=== PATIENT | female | born 1960 | race Caucasian/White ===

== ENCOUNTER 2016-09-23 14:09 | Emergency (ER) | payer OTHER ==
[2016-09-23] MEDS ORDERED: Sodium Chloride 0.9% 1,000 ML IV ONE ×2 (14:52→16:58)
[2016-09-23] MEDS ORDERED: Ondansetron 4 MG/2 ML SDV IVPUSH ONE (14:52)
[2016-09-23 15:32] LABS: CHLORIDE,CL 101 mmol/L (98-110); SODIUM,NA 137 mmol/L (136-146)
--- NOTE | 2016-09-23 16:10 | EDM.PDOC ---
ED HPI GENERAL MEDICAL PROBLEM - General Chief Complaint: Abdominal Pain Stated Complaint: NAUSEA AND VOMITING Time Seen by Provider: 09/23/16 14:45 Source of Information: Reports: Patient History Limitations: Reports: No Limitations - History of Present Illness INITIAL COMMENTS - FREE TEXT/NARRATIVE: History of present illness: [55-year-old female comes in complaining of abdominal pain with diarrhea. Patient indicates she has had several days of diarrhea progressively worsening since she went to a [place] restaurant and ate some chicken and shrimp.] Review of systems: As per history of present illness and below otherwise all systems reviewed and negative. Past medical history: As per history of present illness and as reviewed below otherwise noncontributory. Surgical history: As per history of present illness and as reviewed below otherwise noncontributory. Social history: No reported history of drug or alcohol abuse. Family history: As per history of present illness and as reviewed below otherwise noncontributory. Physical exam: HEENT: Atraumatic, normocephalic, pupils reactive, negative for conjunctival pallor or scleral icterus, mucous membranes moist, throat clear, neck supple, nontender, trachea midline. Lungs: Clear to auscultation, breath sounds equal bilaterally, chest nontender. Heart: S1S2, regular, negative for clicks, rubs, or JVD. Abdomen: Soft, nondistended, nontender. Negative for masses or hepatosplenomegaly. Negative for costovertebral tenderness. Pelvis: Stable nontender. Genitourinary: Deferred. Rectal: Deferred. Extremities: Atraumatic, negative for cords or calf pain. Neurovascular unremarkable. Neuro: Awake, alert, oriented. Cranial nerves II through XII unremarkable. Cerebellum unremarkable. Motor and sensory unremarkable throughout. Exam nonfocal. Diagnostics: [CBC, CMP, CT of the abdomen with contrast] Therapeutics: [IV fluid, Compazine, Zofran] Impression: [Moderate colitis without leukocytosis] Plan: [Xifaxan, Zofran] Definitive disposition and diagnosis as appropriate pending reevaluation and review of above. Abdomen Pain Score (Numeric/FACES): 8 - Related Data Allergies Allergy/AdvReac Type Severity Reaction Status Date / Time No Known Allergies Allergy Verified 09/23/16 14:23 Home Meds: Home Meds Diphenoxylate HCl/Atropine [Diphenoxylate-Atrop 2.5-0.025] 1 tab PO Q8HR PRN [History] Ondansetron [Zofran ODT] 4 mg PO Q4H #24 tab.dis 09/23/16 [Rx] Rifaximin [Xifaxan] 550 mg PO TID #21 tablet 09/23/16 [Rx] Past Medical History Gastrointestinal History: Reports: Chronic Constipation, Hemorrhoids - Infectious Disease History Infectious Disease History: Reports: Chicken Pox, Other (See Below) Other Infectious Disease History: Purpura - Past Surgical History GI Surgical History: Reports: Colonoscopy Social & Family History - Family History Family Medical History: Noncontributory - Tobacco Use Smoking Status *Q: Former Smoker Used Tobacco, but Quit: Yes Month Tobacco Last Used: 05/2015 - Caffeine Use Caffeine Use: Reports: Coffee - Recreational Drug Use Recreational Drug Use: No ED ROS GENERAL - Review of Systems Review Of Systems: See Below (History of present illness) ED EXAM, GI/ABD - Physical Exam Exam: See Below (The history of present illness) Course - Vital Signs Last Recorded V/S: Last Vital Signs Temp 36.7 C 09/23/16 14:24 Pulse 108 H 09/23/16 14:24 Resp 16 09/23/16 14:24 BP 115/62 09/23/16 14:24 Pulse Ox 96 09/23/16 14:24 - Orders/Labs/Meds Orders: Active Orders 24 hr Category Date Time Status Abdomen Pelvis w Cont [CT] Stat Exams 09/23/16 15:52 Taken CULTURE STOOL + CAMPY+SHIGATOX [RM] Stat Lab 09/23/16 15:25 Ordered Labs: Laboratory Tests 09/23/16 09/23/16 Range/Units 15:00 15:00 WBC 11.25 H (4.0-11.0) K/uL RBC 4.26 L (4.30-5.90) M/uL Hgb 11.9 L (12.0-16.0) g/dL Hct 36.5 (36.0-46.0) % MCV 85.7 (80.0-98.0) fL MCH 27.9 (27.0-32.0) pg MCHC 32.6 (31.0-37.0) g/dL RDW Std Deviation 41.3 (28.0-62.0) fl RDW Coeff of Lee 13 (11.0-15.0) % Plt Count 363 (150-400) K/uL MPV 9.90 (7.40-12.00) fL Add Manual Diff YES Neutrophils % (Manual) 25 L (48.0-80.0) % Band Neutrophils % 47 % Lymphocytes % (Manual) 15 L (16.0-40.0) % Monocytes % (Manual) 12 (0.0-15.0) % Eosinophils % (Manual) 1 (0.0-7.0) % Nucleated RBC % 0.0 /100WBC Absolute Seg Neuts 2.8 Band Neutrophils # 5.3 Lymphocytes # (Manual) 1.7 Monocytes # (Manual) 1.4 Eosinophils # (Manual) 0.1 Nucleated RBCs # 0 K/uL Sodium 137 (136-146) mmol/L Potassium 3.6 (3.5-5.1) mmol/L Chloride 101 (98-110) mmol/L Carbon Dioxide 24 (21-31) mmol/L BUN 9 (6.0-23.0) mg/dL Creatinine 0.7 (0.6-1.5) mg/dL Est Cr Clr Drug Dosing 79.34 mL/min Estimated GFR (MDRD) > 60.0 ml/min Glucose 98 (60-110) mg/dL Calcium 8.3 L (8.8-10.8) mg/dL Total Bilirubin 0.5 (0.1-1.5) mg/dL AST 10 (5-40) IU/L ALT 9 (8-54) IU/L Alkaline Phosphatase 63 (40-150) Total Protein 6.4 (6.0-8.0) g/dL Albumin 3.1 L (3.5-5.0) g/dL Globulin 3.3 (2.0-3.5) g/dL Albumin/Globulin Ratio 0.9 L (1.3-2.8) Meds: Medications Discontinued Medications Generic Name Dose Route Start Last Admin Trade Name Freq PRN Reason Stop Dose Admin Sodium Chloride 1,000 mls @ 999 mls/hr 09/23/16 14:52 09/23/16 15:17 Normal Saline IV 09/23/16 15:52 999 mls/hr STAT ONE Administration Sodium Chloride 1,000 mls @ 999 mls/hr 09/23/16 16:58 09/23/16 17:29 Normal Saline IV 09/23/16 17:58 999 mls/hr STAT ONE Administration Iopamidol 100 ml 09/23/16 16:36 09/23/16 17:11 Isovue-370 (76%) IVPUSH 09/23/16 16:37 100 ml ONETIME STA Administration Ondansetron HCl 4 mg 09/23/16 14:52 09/23/16 15:17 Zofran IVPUSH 09/23/16 14:53 4 mg ONETIME ONE Administration Prochlorperazine Edisylate 10 mg 09/23/16 16:58 09/23/16 17:28 Compazine IVPUSH 09/23/16 16:59 10 mg ONETIME ONE Administration Departure - Departure Time of Disposition: 18:34 Disposition: Home, Self-Care 01 Condition: Good Clinical Impression: Colitis - Discharge Information Prescriptions: Ondansetron [Zofran ODT] 4 mg PO Q4H #24 tab.dis Rifaximin [Xifaxan] 550 mg PO TID #21 tablet Forms: ED Department Discharge Additional Instructions: The following information is given to patients seen in the emergency department who are being discharged to home. This information is to outline your options for follow-up care. We provide all patients seen in our emergency department with a follow-up referral. The need for follow-up, as well as the timing and circumstances, are variable depending upon the specifics of your emergency department visit. If you don't have a primary care physician on staff, we will provide you with a referral. We always advise you to contact your personal physician following an emergency department visit to inform them of the circumstance of the visit and for follow-up with them and/or the need for any referrals to a consulting specialist. The emergency department will also refer you to a specialist when appropriate. This referral assures that you have the opportunity for follow-up care with a specialist. All of these measure are taken in an effort to provide you with optimal care, which includes your follow-up. Under all circumstances we always encourage you to contact your private physician who remains a resource for coordinating your care. When calling for follow-up care, please make the office aware that this follow-up is from your recent emergency room visit. If for any reason you are refused follow-up, please contact the [facility] Emergency Department at and asked to speak to the emergency department charge nurse. Technique medication as directed Follow-up with your PCP in 1-2 days Return to ED as needed as discussed - My Orders Last 24 Hours: My Active Orders 09/23/16 15:25 CULTURE STOOL + CAMPY+SHIGATOX [RM] Stat 09/23/16 15:52 Abdomen Pelvis w Cont [CT] Stat - Assessment/Plan Last 24 Hours: My Active Orders 09/23/16 15:25 CULTURE STOOL + CAMPY+SHIGATOX [RM] Stat 09/23/16 15:52 Abdomen Pelvis w Cont [CT] Stat
[2016-09-23] MEDS ORDERED: Iopamidol 755 Mg/ML 100 ML Bottle IVPUSH STA (16:36)
[2016-09-23] MEDS ORDERED: Prochlorperazine 10 MG/2 ML SDV IVPUSH ONE (16:58)
[2016-09-23 19:08] VITALS: BP 107/62
--- NOTE | 2016-09-24 16:53 | CT ---
EXAM DATE: 09/23/16 PATIENT'S AGE: 55 Patient: MAYCOL VERGARA Facility: [place], [place] Site . Site : 1960 Study: CT Abdomen/Pelvis [id number]/15/2017 5:32:40 PM Ordering Physician: Doctor Monterroso Final Report: INDICATION: sick X 3 weeks with diarrhea, patients seen in clinic on Tuesday put on medication and has also been vomiting since. states pain all over abdomen INDICATION: Abdominal pain and diarrhea. CT ABDOMEN AND PELVIS WITH CONTRAST TECHNIQUE: Multidetector CT imaging was performed through the abdomen and pelvis following intravenous contrast administration using 100 mL Isovue 370. Coronal and sagittal reconstructions were generated. COMPARISON: None. FINDINGS: Lower chest: Minimal bibasilar lung atelectasis. Liver: Unremarkable aside from probable tiny cyst in the left hepatic lobe on image 15 of series 201. Gallbladder and bile ducts: Faint dependent density within the gallbladder, possibly representing sludge or stones; if desired, this could be further evaluated with ultrasound. No evidence of cholecystitis. No biliary dilation identified. Pancreas: Unremarkable. Spleen: Normal. Adrenals: No nodules or masses. Kidneys, ureters, and urinary bladder: No renal masses or hydronephrosis. No bladder mass or definite wall thickening. Gastrointestinal tract: Normal caliber small bowel without wall thickening or obstruction. The appendix is normal. Diffuse abnormal wall thickening of the colon, most severe in the distal ascending colon and hepatic flexure, with mild pericolonic stranding, consistent with colitis. Vascular structures: Normal caliber abdominal aorta with mild atherosclerotic calcification. Peritoneum: Trace amount of free fluid in the lower pelvis. No free air or evidence of intra-abdominal abscess. Lymph nodes: No pathologically enlarged nodes identified. Reproductive organs: No pelvic masses. Bones: Normal for age. IMPRESSION: Moderate to severe diffuse colitis, most marked in the right colon. MAMADOU DUEÑAS MD [employer] Dictated by Kole Dueñas MD @ 09/23/2016 6:11:48 PM Prelim Report By Dr. Kole Dueñas @ 09/23/2016 6:14:10 PM ADDENDUM Additional finding not noted above is colonic diverticulosis. Dictated by: , @ 09/23/2016 18:29:07 (Electronic Signature) Report Signed by Proxy. YING
== END 2016-09-23 19:06 | disposition home or self-care (01) ==
LOC: MW.ED 14:09
DX: K52.9 Noninfective gastroenteritis and colitis, unspecified (principal); Z87.891 Personal history of nicotine dependence
CPT/HCPCS: 36415; 74177; 80053; 85025; 96361; 96374; 96375; 99284; J0780; J2405; J7040; Q9967

== ENCOUNTER 2017-08-25 17:19 | Emergency (ER) | payer OTHER ==
[2017-08-25] MEDS ORDERED: Sodium Chloride 0.9% 1,000 ML IV ONE (17:53)
[2017-08-25] MEDS ORDERED: Promethazine 25 MG/ML SDV IM ONE (17:53)
--- NOTE | 2017-08-25 17:58 | EDM.PDOC ---
ED HPI GENERAL MEDICAL PROBLEM - General Chief Complaint: Gastrointestinal Problem Stated Complaint: FLARE UP/MEDICATION CAUSING VOMITING Time Seen by Provider: 08/25/17 17:39 Source of Information: Reports: Patient History Limitations: Reports: No Limitations - History of Present Illness INITIAL COMMENTS - FREE TEXT/NARRATIVE: HISTORY AND PHYSICAL: History of present illness: Patient is a 56-year-old female who presents to the emergency room today with complaints of nausea, vomiting and abdominal pain. 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 She states she has been working closely with her provider to find a medication that helps alleviate her symptoms. Recently she was switched to Lialda last week, but does not feel any improvement. States she has called her mushroom growing supervisor and left digits with them but has not heard back from her provider. She is here today with concerns that she is dehydrated due to her vomiting. Review of systems: As per history of present illness and below otherwise all systems reviewed and negative. Past medical history: As per history of present illness and as reviewed below otherwise noncontributory. Surgical history: As per history of present illness and as reviewed below otherwise noncontributory. Social history: No reported history of drug or alcohol abuse. Family history: As per history of present illness and as reviewed below otherwise noncontributory. Physical exam: General: Well-developed and well-nourished 56-year-old female. Alert and oriented. Nontoxic appearing and in no acute distress. HEENT: Atraumatic, normocephalic, pupils equal and reactive bilaterally, negative for conjunctival pallor or scleral icterus, mucous membranes moist, throat clear, neck supple, nontender, trachea midline. No drooling or trismus noted. No meningeal signs Lungs: Clear to auscultation, breath sounds equal bilaterally, chest nontender. Heart: S1S2, regular rate and rhythm without overt murmur Abdomen: Soft, nondistended, diffuse tenderness in all 4 quadrants. Negative for masses or hepatosplenomegaly. Negative for costovertebral tenderness. Pelvis: Stable nontender. Genitourinary: Deferred. Rectal: Deferred. Skin: Intact, warm, dry. No lesions or rashes noted. Extremities: Atraumatic, negative for cords or calf pain. Neurovascular unremarkable. Neuro: Awake, alert, oriented. Cranial nerves II through XII unremarkable. Cerebellum unremarkable. Motor and sensory unremarkable throughout. Exam nonfocal. Notes: Discussed labs and CT of the abdomen and pelvis for evaluation. She is agreeable to performing lab work but declines a CT of the abdomen/pelvis. She states that she has no new symptoms and recently had a CT which she did not want repeated. With her concern of dehydration she is willing to receive IV fluids. 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 She is requesting steroids, stating that "prednisone usually helps". WBC 16.22 (H) with a Potassium of 3.2 (L). I did encourage the patient to allow us to do a CT of her abdomen; as I am concerned of possible infection with her white count being elevated and low grade temperature. Regardless of my education and expressed concern; she continues to decline, stating "No, that's not necessary". Aware of risks of not having full evaluation. Patient is unable to void, she declines giving a urine sample. She states she doesn't have "a UTI". She reports that her primary care provider usually gives her prednisone for of days. Requesting a prescription until she is able to get to [place] for reevaluation by her mushroom growing supervisor. Diagnostics: CBC CMP Therapeutics: IV fluid, Phenergan IM, Solu-Medrol, potassium Impression: History of Ulcerative Collitis Dehydration Hypokalemia Plan: 1. Multiple tests were not completed through the emergency room, which were recommended. If you do have increased abdominal pain, fever or any new symptoms/ worsening symptoms please return to the emergency room. 2. May start the Prednisone Taper tomorrow (had a dose here in the ED). 3. Please increase foods that are high in potassium such as spinach, bananas, etc.. 4. Follow up with your Informatics Developer or Primary Care Provider in [place] in the next 1-2 days. Return to the ED as needed and as discussed. Definitive disposition and diagnosis as appropriate pending reevaluation and review of above. Duration: Week(s):, Chronic, Getting Worse Location: Reports: Abdomen Abdominal Pain Score (Numeric/FACES): 9 - Related Data Allergies Allergy/AdvReac Type Severity Reaction Status Date / Time No Known Allergies Allergy Verified 08/25/17 17:34 Home Meds: Home Meds Mesalamine [Lialda] 1.2 gm PO QID MDD 4 tabs qid 08/25/17 [History] Past Medical History Gastrointestinal History: Reports: Chronic Constipation, Hemorrhoids, Other ( See Below) Other Gastrointestinal History: UC - Infectious Disease History Infectious Disease History: Reports: Chicken Pox Other Infectious Disease History: Purpura - Past Surgical History GI Surgical History: Reports: Colonoscopy Female Surgical History: Reports: Tubal Ligation Social & Family History - Family History Family Medical History: Noncontributory - Tobacco Use Smoking Status *Q: Former Smoker Used Tobacco, but Quit: Yes Month/Year Tobacco Last Used: 05/2015 - Caffeine Use Caffeine Use: Reports: Coffee - Recreational Drug Use Recreational Drug Use: No ED ROS GENERAL - Review of Systems Review Of Systems: ROS reveals no pertinent complaints other than HPI. ED EXAM, GI/ABD - Physical Exam Exam: See Below (See dictation) Course - Vital Signs Last Recorded V/S: Last Vital Signs Temp 99.2 F 08/25/17 17:39 Pulse 90 08/25/17 17:39 Resp 18 08/25/17 17:39 BP 116/70 08/25/17 17:39 Pulse Ox 100 08/25/17 17:39 - Orders/Labs/Meds Orders: Active Orders 24 hr Category Date Time Status UA W/MICROSCOPIC [URIN] Stat Lab 08/25/17 17:53 Ordered Labs: Laboratory Tests 08/25/17 08/25/17 Range/Units 18:06 18:06 WBC 16.22 H (4.0-11.0) K/uL RBC 3.81 L (4.30-5.90) M/uL Hgb 11.2 L (12.0-16.0) g/dL Hct 33.2 L (36.0-46.0) % MCV 87.1 (80.0-98.0) fL MCH 29.4 (27.0-32.0) pg MCHC 33.7 (31.0-37.0) g/dL RDW Std Deviation 42.0 (28.0-62.0) fl RDW Coeff of Lee 13 (11.0-15.0) % Plt Count 397 (150-400) K/uL MPV 9.90 (7.40-12.00) fL Neut % (Auto) 83.2 H (48.0-80.0) % Lymph % (Auto) 4.6 L (16.0-40.0) % Childress % (Auto) 10.4 (0.0-15.0) % Eos % (Auto) 1.7 (0.0-7.0) % Baso % (Auto) 0.1 (0.0-1.5) % Neut # (Auto) 13.5 H (1.4-5.7) K/uL Lymph # (Auto) 0.8 (0.6-2.4) K/uL Childress # (Auto) 1.7 H (0.0-0.8) K/uL Eos # (Auto) 0.3 (0.0-0.7) K/uL Baso # (Auto) 0.0 (0.0-0.1) K/uL Nucleated RBC % 0.0 /100WBC Nucleated RBCs # 0 K/uL Sodium 134 L (136-145) mmol/L Potassium 3.2 L (3.5-5.1) mmol/L Chloride 99 (98-107) mmol/L Carbon Dioxide 26.8 (21.0-32.0) mmol/L BUN 7 (7.0-18.0) mg/dL Creatinine 0.7 (0.6-1.0) mg/dL Est Cr Clr Drug Dosing 78.41 mL/min Estimated GFR (MDRD) > 60.0 ml/min Glucose 112 H (74-106) mg/dL Calcium 8.7 (8.5-10.1) mg/dL Total Bilirubin 0.6 (0.2-1.0) mg/dL AST 14 L (15-37) IU/L ALT 15 (14-63) IU/L Alkaline Phosphatase 67 (46-116) U/L Total Protein 6.8 (6.4-8.2) g/dL Albumin 2.9 L (3.4-5.0) g/dL Globulin 3.9 H (2.0-3.5) g/dL Albumin/Globulin Ratio 0.7 L (1.3-2.8) Amylase 15 L (25-115) U/L Lipase 65 L (73-393) U/L Meds: Medications Discontinued Medications Generic Name Dose Route Start Last Admin Trade Name Freq PRN Reason Stop Dose Admin Sodium Chloride 1,000 mls @ 999 mls/hr 08/25/17 17:53 08/25/17 18:08 Normal Saline IV 08/25/17 18:53 999 mls/hr STAT ONE Administration Methylprednisolone Sodium Succinate 125 mg 08/25/17 18:50 Solu-Medrol IVPUSH 08/25/17 18:51 ONETIME ONE Potassium Chloride 40 meq 08/25/17 18:50 Klor-Con M20 PO 08/25/17 18:51 ONETIME ONE Promethazine HCl 25 mg 08/25/17 17:53 08/25/17 18:10 Phenergan IM 08/25/17 17:54 25 mg ONETIME ONE Administration Departure - Departure Time of Disposition: 19:22 Disposition: Home, Self-Care 01 Clinical Impression: Hypokalemia, Dehydration, History of ulcerative colitis - Discharge Information Referrals: PCP,None [Primary Care Provider] - Forms: ED Department Discharge Additional Instructions: The following information is given to patients seen in the emergency department who are being discharged to home. This information is to outline your options for follow-up care. We provide all patients seen in our emergency department with a follow-up referral. The need for follow-up, as well as the timing and circumstances, are variable depending upon the specifics of your emergency department visit. If you don't have a primary care physician on staff, we will provide you with a referral. We always advise you to contact your personal physician following an emergency department visit to inform them of the circumstance of the visit and for follow-up with them and/or the need for any referrals to a consulting specialist. The emergency department will also refer you to a specialist when appropriate. This referral assures that you have the opportunity for follow-up care with a specialist. All of these measure are taken in an effort to provide you with optimal care, which includes your follow-up. Under all circumstances we always encourage you to contact your private physician who remains a resource for coordinating your care. When calling for follow-up care, please make the office aware that this follow-up is from your recent emergency room visit. If for any reason you are refused follow-up, please contact the [facility] Emergency Department at and asked to speak to the emergency department charge nurse. [facility] [address] [place] [id number] 1. Multiple tests were not completed through the emergency room, which were recommended. If you do have increased abdominal pain, fever or any new symptoms/ worsening symptoms please return to the emergency room. 2. May start the Prednisone tomorrow (had a dose of steroid here in the ED). 3. Please increase foods that are high in potassium such as spinach, bananas, etc.. 4. Follow up with your Informatics Developer or Primary Care Provider in [place] in the next 1-2 days. Return to the ED as needed and as discussed. - My Orders Last 24 Hours: My Active Orders 08/25/17 17:53 UA W/MICROSCOPIC [URIN] Stat - Assessment/Plan Last 24 Hours: My Active Orders 08/25/17 17:53 UA W/MICROSCOPIC [URIN] Stat
[2017-08-25 18:33] LABS: CHLORIDE,CL 99 mmol/L (98-107); SODIUM,NA 134 mmol/L (136-145)
[2017-08-25] MEDS ORDERED: methylPREDNISolone Sodium Succinate 125 MG/2 ML SDV IVPUSH ONE (18:50)
[2017-08-25] MEDS ORDERED: Potassium Chloride 20 MEQ Tab.ER PO ONE (18:50)
[2017-08-25 19:48] VITALS: BP 114/70
== END 2017-08-25 19:49 | disposition home or self-care (01) ==
LOC: MW.ED 17:19
DX: E86.0 Dehydration (principal); E87.6 Hypokalemia; Z87.891 Personal history of nicotine dependence
CPT/HCPCS: 80053; 82150; 83690; 85025; 96361; 96372; 96374; 99284; A9270; J2550; J2930; J7040

== ENCOUNTER 2023-11-06 09:16 | Inpatient (IN) | payer BC, OTHER ==
[2023-11-06] MEDS: Ketorolac 30 MG/ML SDV IVPUSH ONE (09:42)
[2023-11-06] MEDS: Ondansetron 4 MG/2 ML SDV IVPUSH ONE (09:42)
[2023-11-06 09:52] LABS: BASOPHILS ABSOLUTE AUTO 0.03 K/uL (0.00-0.20); BASOPHILS PERCENT AUTO 0.2 % (0.0-1.0); HEMOGLOBIN 12.3 g/dL (12.0-16.0); IMMATURE GRAN ABSOLUTE AUTO 0.03 K/uL (0.00-0.05); IMMATURE GRAN PERCENT AUTO 0.2 % (0.0-0.4); LYMPHOCYTES ABSOLUTE AUTO 0.51 K/uL (1.00-4.80); LYMPHOCYTES PERCENT AUTO 4.1 % (24.0-44.0); MEAN CORPUSCULAR HEMOGLOBIN 29.9 pg (28.0-32.0); MEAN CORPUSCULAR HGB CONC 32.4 g/dL (32.0-36.0); MEAN CORPUSCULAR VOLUME 92.5 fL (83.0-99.0); MEAN PLATELET VOLUME 10.9 fL (9.4-12.3); MONOCYTES ABSOLUTE AUTO 0.63 K/uL (0.00-0.80); MONOCYTES PERCENT AUTO 5.1 % (0.0-8.0); NEUTROPHILS ABSOLUTE AUTO 11.21 K/uL (1.80-7.70); NEUTROPHILS PERCENT AUTO 90.4 % (41.0-71.0); PLATELET COUNT,PLT 200 K/uL (150-400); RED BLOOD CELL COUNT 4.11 M/uL (4.10-5.30); WHITE BLOOD CELL COUNT,WBC 12.41 K/uL (3.9-11.3)
[2023-11-06 10:12] LABS: A/G RATIO 1.4 (0.9-1.6); ALBUMIN 3.8 g/dL (3.4-5.0); BILIRUBIN TOTAL 0.7 mg/dL (0.2-1.0); CALCIUM 8.5 mg/dL (8.5-10.1); CARBON DIOXIDE,CO2 25.7 mmol/L (21.0-32.0); CREATININE 0.9 mg/dL (0.6-1.0); EST CRCL DRUG DOSING (CG) 56.68 mL/min; POTASSIUM,K 3.7 mmol/L (3.5-5.1); PROTEIN TOTAL,TP 6.6 g/dL (6.4-8.2)
[2023-11-06] MEDS: Iopamidol 755 MG/ML 500 ML Multipack Bottle IVPUSH STA (12:23)
[2023-11-06] MEDS: Ertapenem 1 GM in Sodium Chloride 0.9% 50 ML IV SCH (13:41)
[2023-11-06] MEDS: Sodium Chloride 0.9% 1,000 ML IV ONE (13:41)
[2023-11-06] MEDS ORDERED: dexmedeTOMIDine HCl 200 MCG/2 ML SDV ONE (14:54)
[2023-11-06] MEDS ORDERED: Propofol 200 MG/20 ML SDV ONE (14:54)
[2023-11-06] MEDS ORDERED: Rocuronium Bromide 50 MG/5 ML Syringe ONE (14:54)
[2023-11-06] MEDS ORDERED: fentaNYL 100 MCG/2 ML SDV ONE (14:54)
[2023-11-06] MEDS ORDERED: Water For Injection, Sterile 20 ML ONE (14:54)
[2023-11-06] MEDS ORDERED: Ropivacaine 0.5% 5 MG/ML 30 ML SDV ONE (15:01)
[2023-11-06] MEDS ORDERED: Bupivacaine 0.5% 30 ML SDV ONE (15:20)
[2023-11-06] MEDS ORDERED: Dexamethasone 4 MG/ML 5 ML MDV ONE (15:55)
[2023-11-06] MEDS ORDERED: Ondansetron 4 MG/2 ML SDV ONE (15:56)
[2023-11-06] MEDS ORDERED: Phenylephrine HCl In 0.9% NaCl 1 MG/10 ML Syringe ONE (15:56)
[2023-11-06] MEDS ORDERED: Magnesium Sulfate (4.06 MEQ/ML) 5 GM/10 ML SDV ONE (15:57)
[2023-11-06] MEDS ORDERED: Sugammadex Sodium 200 MG/2 ML VIAL IV ONE (16:33)
[2023-11-06] MEDS ORDERED: ceFAZolin 1 GM Vial ONE (16:41)
[2023-11-06] MEDS ORDERED: Naloxone 0.4 MG/ML SDV IVPUSH PRN (17:16)
[2023-11-06] MEDS ORDERED: HYDROmorphone 2 MG/ML Syringe IVPUSH PRN (17:16)
[2023-11-06] MEDS: Acetaminophen 1,000 MG in Premix Bag 1 BAG IV SCH (19:12)
[2023-11-06] MEDS: Sodium Chloride 0.9% 1,000 ML IV SCH (19:13)
[2023-11-06] MEDS: sulfaSALAzine 500 MG Tab PO SCH (19:17)
[2023-11-06] MEDS: Piperacillin/Tazobactam 4.5 GM in Sodium Chloride 0.9% 100 ML IV ONE ×2 (20:07→20:11)
[2023-11-07] MEDS: Piperacillin/Tazobactam 4.5 GM in Sodium Chloride 0.9% 100 ML IV SCH (00:56)
[2023-11-07] MEDS: Acetaminophen/HYDROcodone 325-5 MG Tab PO PRN (04:36)
[2023-11-07 05:49] LABS: HEMATOCRIT 34.2 % (37.0-47.0); HEMOGLOBIN 10.7 g/dL (12.0-16.0); MEAN CORPUSCULAR HEMOGLOBIN 29.9 pg (28.0-32.0); MEAN CORPUSCULAR HGB CONC 31.3 g/dL (32.0-36.0); MEAN CORPUSCULAR VOLUME 95.5 fL (83.0-99.0); MEAN PLATELET VOLUME 11.2 fL (9.4-12.3); PLATELET COUNT,PLT 171 K/uL (150-400); RED BLOOD CELL COUNT 3.58 M/uL (4.10-5.30); WHITE BLOOD CELL COUNT,WBC 15.24 K/uL (3.9-11.3)
[2023-11-07 06:23] LABS: CALCIUM 8.1 mg/dL (8.5-10.1); CARBON DIOXIDE,CO2 27.9 mmol/L (21.0-32.0); EST CRCL DRUG DOSING (CG) 51.02 mL/min; POTASSIUM,K 4.5 mmol/L (3.5-5.1)
[2023-11-07] MEDS: Losartan 50 MG Tab PO SCH (09:30)
[2023-11-07] MEDS: Hydrochlorothiazide 12.5 MG Cap PO SCH (09:30)
[2023-11-07] MEDS ORDERED: Benzocaine 20% Topical Spray UD MUCMEM PRN (19:28)
[2023-11-07] MEDS: HYDROmorphone 1 MG/ML Syringe IVPUSH PRN (19:37)
[2023-11-07] MEDS: sulfaSALAzine 500 MG Tab PO SCH (23:21)
[2023-11-07] MEDS: Acetaminophen 1,000 MG in Premix Bag 1 BAG IV PRN (23:54)
[2023-11-08] MEDS: Ondansetron 4 MG/2 ML SDV IVPUSH PRN (04:05)
[2023-11-08 08:13] LABS: BASOPHILS ABSOLUTE AUTO 0.01 K/uL (0.00-0.20); BASOPHILS PERCENT AUTO 0.1 % (0.0-1.0); EOSINOPHILS ABSOLUTE AUTO 0.02 K/uL (0.00-0.45); EOSINOPHILS PERCENT AUTO 0.2 % (0.0-6.0); HEMATOCRIT 32.7 % (37.0-47.0); HEMOGLOBIN 10.2 g/dL (12.0-16.0); IMMATURE GRAN ABSOLUTE AUTO 0.07 K/uL (0.00-0.05); IMMATURE GRAN PERCENT AUTO 0.6 % (0.0-0.4); LYMPHOCYTES ABSOLUTE AUTO 0.69 K/uL (1.00-4.80); LYMPHOCYTES PERCENT AUTO 6.3 % (24.0-44.0); MEAN CORPUSCULAR HEMOGLOBIN 29.9 pg (28.0-32.0); MEAN CORPUSCULAR HGB CONC 31.2 g/dL (32.0-36.0); MEAN CORPUSCULAR VOLUME 95.9 fL (83.0-99.0); MEAN PLATELET VOLUME 10.8 fL (9.4-12.3); MONOCYTES ABSOLUTE AUTO 0.35 K/uL (0.00-0.80); MONOCYTES PERCENT AUTO 3.2 % (0.0-8.0); NEUTROPHILS ABSOLUTE AUTO 9.86 K/uL (1.80-7.70); NEUTROPHILS PERCENT AUTO 89.6 % (41.0-71.0); PLATELET COUNT,PLT 172 K/uL (150-400); RED BLOOD CELL COUNT 3.41 M/uL (4.10-5.30)
[2023-11-08 08:39] LABS: CALCIUM 8.4 mg/dL (8.5-10.1); CARBON DIOXIDE,CO2 25.8 mmol/L (21.0-32.0); CREATININE 0.7 mg/dL (0.6-1.0); EST CRCL DRUG DOSING (CG) 72.88 mL/min; POTASSIUM,K 3.6 mmol/L (3.5-5.1)
[2023-11-08] MEDS: Ibuprofen 600 MG Tab PO PRN (08:39)
[2023-11-08] MEDS: Ertapenem 1 GM in Sodium Chloride 0.9% 50 ML IV SCH (08:41)
[2023-11-08] MEDS: Lactated Ringers 1,000 ML IV SCH (17:04)
[2023-11-08] MEDS ORDERED: Acetaminophen/Butalbital/Caffeine 325-50-40 MG Tab PO PRN (18:44)
[2023-11-08] MEDS: diphenhydrAMINE 50 MG/ML SDV IVPUSH ONE (18:59)
[2023-11-09 06:22] LABS: BASOPHILS ABSOLUTE AUTO 0.03 K/uL (0.00-0.20); BASOPHILS PERCENT AUTO 0.4 % (0.0-1.0); EOSINOPHILS ABSOLUTE AUTO 0.03 K/uL (0.00-0.45); EOSINOPHILS PERCENT AUTO 0.4 % (0.0-6.0); HEMATOCRIT 32.4 % (37.0-47.0); HEMOGLOBIN 10.1 g/dL (12.0-16.0); IMMATURE GRAN ABSOLUTE AUTO 0.03 K/uL (0.00-0.05); IMMATURE GRAN PERCENT AUTO 0.4 % (0.0-0.4); LYMPHOCYTES ABSOLUTE AUTO 0.77 K/uL (1.00-4.80); LYMPHOCYTES PERCENT AUTO 9.2 % (24.0-44.0); MEAN CORPUSCULAR HEMOGLOBIN 29.7 pg (28.0-32.0); MEAN CORPUSCULAR HGB CONC 31.2 g/dL (32.0-36.0); MEAN CORPUSCULAR VOLUME 95.3 fL (83.0-99.0); MEAN PLATELET VOLUME 10.6 fL (9.4-12.3); MONOCYTES PERCENT AUTO 5.9 % (0.0-8.0); NEUTROPHILS ABSOLUTE AUTO 7.05 K/uL (1.80-7.70); NEUTROPHILS PERCENT AUTO 83.7 % (41.0-71.0); PLATELET COUNT,PLT 199 K/uL (150-400); WHITE BLOOD CELL COUNT,WBC 8.41 K/uL (3.9-11.3)
[2023-11-09] MEDS ORDERED: diphenhydrAMINE 50 MG/ML SDV IVPUSH PRN (10:18)
[2023-11-10 06:18] LABS: BASOPHILS ABSOLUTE AUTO 0.03 K/uL (0.00-0.20); BASOPHILS PERCENT AUTO 0.5 % (0.0-1.0); EOSINOPHILS PERCENT AUTO 1.5 % (0.0-6.0); HEMATOCRIT 31.5 % (37.0-47.0); HEMOGLOBIN 10.2 g/dL (12.0-16.0); IMMATURE GRAN ABSOLUTE AUTO 0.06 K/uL (0.00-0.05); IMMATURE GRAN PERCENT AUTO 0.9 % (0.0-0.4); LYMPHOCYTES PERCENT AUTO 15.1 % (24.0-44.0); MEAN CORPUSCULAR HEMOGLOBIN 29.8 pg (28.0-32.0); MEAN CORPUSCULAR HGB CONC 32.4 g/dL (32.0-36.0); MEAN CORPUSCULAR VOLUME 92.1 fL (83.0-99.0); MEAN PLATELET VOLUME 10.5 fL (9.4-12.3); MONOCYTES ABSOLUTE AUTO 0.72 K/uL (0.00-0.80); MONOCYTES PERCENT AUTO 10.9 % (0.0-8.0); NEUTROPHILS ABSOLUTE AUTO 4.72 K/uL (1.80-7.70); NEUTROPHILS PERCENT AUTO 71.1 % (41.0-71.0); PLATELET COUNT,PLT 239 K/uL (150-400); RED BLOOD CELL COUNT 3.42 M/uL (4.10-5.30); WHITE BLOOD CELL COUNT,WBC 6.63 K/uL (3.9-11.3)
[2023-11-10] MEDS: Amoxicillin/Clavulanate K 875-125 MG Tab PO SCH (08:39)
[2023-11-10 12:01] VITALS: BP 141/80; PULSE 80
[2023-11-11] MEDS ORDERED: Amoxicillin/Clavulanate K 875-125 MG Tab PO SCH (05:00)
== END 2023-11-10 11:30 | disposition home or self-care (01) | DRG 233 ==
LOC: MW.ED 09:16 → MW.SDS 15:32 → MW.MS 17:00
PROVIDERS: ADMIT Surgery; ATTEND Surgery
PROC: 0DTJ4ZZ Resection of Appendix, Percutaneous Endoscopic Approach (ICD-10-PCS; principal; 2023-11-06 16:00)
DX: K35.32 Acute appendicitis with perforation, localized peritonitis, and gangrene, without abscess (principal); K51.90 Ulcerative colitis, unspecified, without complications; I10 Essential (primary) hypertension; R51.9 Headache, unspecified; K59.09 Other constipation; Z98.51 Tubal ligation status; Z87.891 Personal history of nicotine dependence; Z79.899 Other long term (current) drug therapy; Z98.890 Other specified postprocedural states
CPT/HCPCS: 00840; 36415; 64488; 70450; 70450-26; 74177; 74177-26; 80048; 80053; 85025; 85027; 96361; 96374; 96375; 99222; 99231; 99285; 99285-25; A9270-GY; J0131; J0665; J0690; J1100; J1170; J1200; J1335; J1885; J2371; J2405; J2543; J2704; J2795; J3010; J3475; J3490; J7030; J7120; Q9967